=== PATIENT | female | born 1995 | race Asian ===

== ENCOUNTER 2021-04-03 07:07 | Emergency (ER) | payer OTHER ==
[~2021-04-03] VITALS: Ht 165.1 cm; Wt 55.3 kg
[2021-04-03 07:18] VITALS: BP_SYST 134
--- NOTE | 2021-04-03 07:30 | NUR ---
Patient to ER bed 2 to gown for evaluation. Side rails up. Report given to HECTOR COOK.
--- NOTE | 2021-04-03 07:40 | NUR ---
RECEIVED AND IN ROOM, CALM, ALERT, RESP UNLABORED, SKIN WARM AND DRY. COMMUNICATES CLEARLY IN FULL COMPLETE SENTECES.
[2021-04-03] MEDS ORDERED: NACL 0.9% 1,000 ML IV ONE ×2 (07:45→09:45)
[2021-04-03] MEDS ORDERED: ONDANSETRON HCL 4 MG/2 ML VIAL IVP ONE ×4 (07:45→09:45)
--- NOTE | 2021-04-03 07:50 | NUR ---
Dr Miguel in to assess
[2021-04-03 08:09] LABS: BASOPHILS % (AUTO) 0.7 % (0.0-2.0); EOSINOPHILS # (AUTO) 0.1 K/uL (0.0-0.4); EOSINOPHILS % (AUTO) 1.4 % (0.0-4.0); HEMATOCRIT 37.6 % (36-48); HEMOGLOBIN 12.4 g/dL (12.0-16.0); LYMPHOCYTES # (AUTO) 1.7 K/uL (1.0-5.5); LYMPHOCYTES % (AUTO) 37.4 % (20.5-51.5); MEAN CORPUSCULAR HEMOGLOBIN 30 pg (27-31); MEAN CORPUSCULAR HGB CONC 33 % (32-36); MEAN CORPUSCULAR VOLUME 91 fL (79.0-98.0); MONOCYTES # (AUTO) 0.5 K/uL (0.0-1.0); MONOCYTES % (AUTO) 10.1 % (1.7-9.3); NEUTROPHILS # (AUTO) 2.3 K/uL (1.8-7.7); NEUTROPHILS % (AUTO) 50.4 % (40.0-70.0); PLATELET COUNT (AUTO) 293 K/uL (130-430); RED BLOOD CELL COUNT(AUTO) 4.13 MIL/uL (4.2-6.2); WHITE BLOOD COUNT (AUTO) 4.5 K/uL (4.8-10.8)
--- NOTE | 2021-04-03 08:12 | NUR ---
C/O ALCOHOL OVERCONSUMPTION, NO PAIN
[2021-04-03 08:18] LABS: CALCIUM 8.3 mg/dL (8.4-11.0); CREATININE 0.64 mg/dL (0.55-1.30); POTASSIUM 3.9 mmol/L (3.5-5.1)
[2021-04-03 08:32] LABS: ALBUMIN 3.5 g/dL (3.4-4.8); TOTAL BILIRUBIN 0.4 mg/dL (0.0-1.0)
[2021-04-03] MEDS: MAG HYDROX/AL HYDROX/SIMETH 30 ML, DICYCLOMINE HCL 20 MG, LIDOCAINE VISCOUS 2% 15ML (PO... PO ONE ×6 (08:32→08:44)
--- NOTE | 2021-04-03 09:40 | NUR ---
DR ZHENG AT BEDSIDE
[2021-04-03] MEDS ORDERED: PROM6.256 PO (10:06)
[2021-04-03] MEDS ORDERED: PRO40 PO (10:06)
--- NOTE | 2021-04-03 10:08 | NUR ---
MEDICATED ORDERED, FAMILY AT BEDSIDE, CALM, ALERT, RESP UNLABORED
--- NOTE | 2021-04-03 10:25 | NUR ---
Patient given written and verbal discharge instructions and verbalizes understanding. ER MD discussed with patient the results and treatment provided. Patient in stable condition. ID arm band removed. IV catheter removed intact and dressing applied, no active bleeding. Rx of ZOFRAN given. Patient educated on pain management and to follow up with PMD. Pain Scale 0/10 Opportunity for questions provided and answered. Medication side effect fact sheet provided.
[2021-04-03 10:26] VITALS: BP_SYST 125
== END 2021-04-03 10:25 | disposition home or self-care (01) ==
LOC: SED 07:07
DX: K29.20 Alcoholic gastritis without bleeding (principal); R11.2 Nausea with vomiting, unspecified; K21.9 Gastro-esophageal reflux disease without esophagitis; Z79.899 Other long term (current) drug therapy
CPT/HCPCS: 36415; 80053; 83690; 84702; 85025; 96361; 96374; 96376; 99285; J2001; J2405; J7030